=== PATIENT | female | born 1995 | race Caucasian/White ===

== ENCOUNTER 2019-09-18 18:35 | Inpatient (IN) ==
[2019-09-18] MEDS ORDERED: Ziprasidone 10 MG in Water for inj. (sterile) 0.5 ML IM ONE ×2 (19:53→20:48)
[2019-09-18] MEDS ORDERED: Ziprasidone 20 MG/VIAL VIAL IM ONE (19:53)
[2019-09-18] MEDS ORDERED: Water for inj. (sterile) 10 ML ONE (19:54)
[2019-09-18] MEDS ORDERED: *HR* LORazepam 2 MG/ML VIAL ONE (20:01)
[2019-09-18 20:03] LABS: Bilirubin,Urine Small (Negative); Blood,Urine Negative (Negative); Clarity,Urine Cloudy (Clear); Color,Urine Dark Yellow (Yellow); Glucose,Urine (UA) Normal (Normal); Ketones,Urine Negative (Negative); Leukocyte Esterase,Urine Small (Negative); Nitrite,Urine Negative (Negative); Protein,Urine 30 mg/dL (Neg-Trace); Specific Gravity,Urine > 1.030 (1.010-1.025); Urobilinogen,Urine Normal (Normal)
[2019-09-18] MEDS ORDERED: *HR* LORazepam 2 MG/ML VIAL IM ONE ×2 (20:05→20:49)
[2019-09-18 20:07] LABS: Amphetamine Screen,Urine Positive ng/mL (Cutoff=1000); Bacteria,Urine None Seen per hpf (None-Few); Barbiturate Screen,Urine Negative ng/mL (Cutoff=200); Benzodiazepines Screen,Urine Positive ng/mL (Cutoff=200); Cannabinoid Screen,Urine Positive ng/mL (Cutoff = 50); Cocaine Screen,Urine Negative ng/mL (Cutoff= 300); Opiate Screen,Urine Negative ng/mL (Cutoff=300); Phencyclidine Screen,Urine Negative ng/mL (Cutoff=25); Squamous Epithelial Cell,Urine Moderate per lpf (None-Few); WBC,Urine 30-50 per hpf (0-3)
[2019-09-18 20:22] LABS: INR 1.1; Prothrombin Time 12.7 Seconds (9.4-12.1)
[2019-09-18 20:24] LABS: Basophils % 0.3 %; Eosinophils # 0.1 K/mcL (0.0-0.6); Eosinophils % 0.5 %; Hematocrit 43.3 % (35.3-44.9); Hemoglobin 14.6 g/dL (11.5-15.4); Immature Granulocytes % 0.3 % (0-4); Lymphocytes # 1.3 K/mcL (0.6-4.6); Lymphocytes % 12.3 %; Mean Corpuscular HGB Conc 33.7 g/dL (31.6-35.5); Mean Corpuscular Volume 91.9 fL (83.0-100.0); Mean Platelet Volume 8.2 fL (9.4-12.4); Monocytes # 0.7 K/mcL (0.0-1.3); Monocytes % 6.7 %; Neutrophils # 8.7 K/mcL (1.6-8.9); Platelet Count 207 K/mcL (140-400); Red Blood Count 4.71 M/mcL (3.82-4.97); Segmented Neutrophils % 79.9 %; White Blood Count 10.8 K/mcL (4.3-11.1)
[2019-09-18 20:25] LABS: Activated Partial Thrombo Time 33.5 Seconds (26.0-36.0)
[2019-09-18 20:32] LABS: Hyaline Casts,Urine Few per lpf (None-Few)
[2019-09-18 20:33] LABS: Mucus,Urine Moderate per lpf (Few)
[2019-09-18] MEDS ORDERED: Ketamine *HR* 500 MG/10 ML MDV ONE (20:41)
[2019-09-18 21:20] LABS: Acetaminophen < 10 mcg/mL (10-20); Alanine Aminotransferase 31 Units/L (7-52); Albumin 4.5 g/dL (3.5-5.7); Albumin/Globulin Ratio 1.4 (1.1-2.2); Alkaline Phosphatase 61 Units/L (34-104); Aspartate Amino Transferase 28 Units/L (13-39); BUN/Creatinine Ratio 13 (6-26); Bilirubin,Direct 0.2 mg/dL (0.0-0.2); Bilirubin,Indirect 1.1 mg/dL (0.0-1.0); Bilirubin,Total 1.3 mg/dL (0.3-1.0); Blood Urea Nitrogen 12 mg/dL (6-20); Carbon Dioxide 25 mEq/L (23-29); Chloride 109 mEq/L (98-107); Chol/HDL Ratio 4.3 (0-4.9); Cholesterol 200 mg/dL (< 200); Creatine Kinase 52 Units/L (30-223); Ethanol < 10 mg/dL (Less than 10); Globulin 3.3 g/dL (2.4-3.5); Glucose 75 mg/dL (70-105); HDL Cholesterol 46 mg/dL (40-59); LDL Cholesterol,Calculated 98 mg/dL (0-99); Osmolality,Calculated 282 (280-300); Salicylate < 2.5 mg/dL (15.0-30.0); Sodium 137 mEq/L (136-145); Thyroid Stimulating Hormone 1.222 mcIU/mL (0.340-5.600); Total Protein 7.8 g/dL (6.4-8.9); Triglycerides 282 mg/dL (< 150); Valproate < 4 mcg/mL (50-100); eGFR For African Americans > 60 (> 60); eGFR For Non-African Americans > 60 (> 60)
[2019-09-18] MEDS ORDERED: 0.9 % Sodium Chloride 1,000 ML IVC ONE (22:05)
[2019-09-18] MEDS ORDERED: cefTRIAXone 1,000 MG in Water for inj. (sterile) 10 ML IVP STA (22:08)
[2019-09-18 22:15] LABS: Estimated Average Glucose 111 mg/dl
[2019-09-19] MEDS ORDERED: Naloxone 0.4 MG/ML INJ IVP PRN (02:31)
[2019-09-19 03:23] LABS: Hematocrit 41.5 % (35.3-44.9); Hemoglobin 13.9 g/dL (11.5-15.4); Mean Corpuscular HGB Conc 33.5 g/dL (31.6-35.5); Mean Corpuscular Hemoglobin 31.4 pg (28.0-33.3); Mean Corpuscular Volume 93.9 fL (83.0-100.0); Mean Platelet Volume 8.6 fL (9.4-12.4); Platelet Count 185 K/mcL (140-400); Red Blood Count 4.42 M/mcL (3.82-4.97); Red Cell Distribution Width 11.9 % (11.5-14.5)
[2019-09-19 03:42] LABS: Alanine Aminotransferase 25 Units/L (7-52); Albumin 4.2 g/dL (3.5-5.7); Albumin/Globulin Ratio 1.4 (1.1-2.2); Alkaline Phosphatase 54 Units/L (34-104); Aspartate Amino Transferase 22 Units/L (13-39); BUN/Creatinine Ratio 14 (6-26); Bilirubin,Total 1.1 mg/dL (0.3-1.0); Blood Urea Nitrogen 11 mg/dL (6-20); Calcium 9.1 mg/dL (8.6-10.3); Carbon Dioxide 25 mEq/L (23-29); Chloride 108 mEq/L (98-107); Globulin 2.9 g/dL (2.4-3.5); Glucose 87 mg/dL (70-105); Magnesium 2.2 mg/dL (1.6-2.6); Osmolality,Calculated 291 (280-300); Phosphorous 4.3 mg/dL (2.7-4.5); Potassium 4.2 mEq/L (3.5-5.1); Sodium 141 mEq/L (136-145); Total Protein 7.1 g/dL (6.4-8.9); eGFR For African Americans > 60 (> 60); eGFR For Non-African Americans > 60 (> 60)
[2019-09-19] MEDS ORDERED: *HR* Promethazine 25 MG/ML VIAL IVP PRN (03:56)
[2019-09-19 04:08] LABS: Vitamin B12 302 pg/mL (250-1100)
[2019-09-19] MEDS: 0.9 % Sodium Chloride 1,000 ML IVC SCH ×2 (04:14→12:32)
[2019-09-19 04:51] LABS: Hepatitis B Surface Antigen Nonreactive (Nonreactive)
[2019-09-19 05:14] LABS: HIV-1&2 Antibody & p24 Ag Nonreactive (Nonreactive)
[2019-09-19 05:20] LABS: Hepatitis C Virus Antibody Nonreactive (Nonreactive)
[2019-09-19 05:21] LABS: Hepatitis B Core IgM Nonreactive (Nonreactive)
[2019-09-19 05:22] LABS: Hepatitis A Antibody IgM Nonreactive (Nonreactive)
[2019-09-19] MEDS: Haloperidol Lactate 5 MG/ML VIAL IVP PRN ×2 (12:32→22:07)
[2019-09-19] MEDS: RisperiDONE-M 1 MG TAB.RAPDIS PO SCH ×2 (13:40→21:21)
[2019-09-19] MEDS ORDERED: *HR* LORazepam 2 MG/ML VIAL IVP ONE ×2 (13:55→19:06)
[2019-09-19] MEDS ORDERED: *HR* LORazepam 2 MG/ML VIAL ONE (14:16)
[2019-09-19] MEDS: Folic Acid 1 MG TABLET PO SCH (14:37)
[2019-09-19] MEDS: Thiamine (B-1) 100 MG TABLET PO SCH (14:37)
[2019-09-19] MEDS ORDERED: cefTRIAXone 1,000 MG in 0.9 % Sodium Chloride Mini Bag 100 ML IVPB SCH (21:00)
[2019-09-20 02:45] LABS: Hematocrit 36.9 % (35.3-44.9); Hemoglobin 12.5 g/dL (11.5-15.4); Mean Corpuscular HGB Conc 33.9 g/dL (31.6-35.5); Mean Corpuscular Hemoglobin 31.7 pg (28.0-33.3); Mean Corpuscular Volume 93.7 fL (83.0-100.0); Mean Platelet Volume 8.9 fL (9.4-12.4); Platelet Count 170 K/mcL (140-400); Red Blood Count 3.94 M/mcL (3.82-4.97); White Blood Count 6.6 K/mcL (4.3-11.1)
[2019-09-20 03:03] LABS: BUN/Creatinine Ratio 18 (6-26); Blood Urea Nitrogen 14 mg/dL (6-20); Calcium 8.7 mg/dL (8.6-10.3); Carbon Dioxide 21 mEq/L (23-29); Chloride 106 mEq/L (98-107); Glucose 81 mg/dL (70-105); Osmolality,Calculated 288 (280-300); Potassium 3.5 mEq/L (3.5-5.1); Sodium 139 mEq/L (136-145); eGFR For African Americans > 60 (> 60); eGFR For Non-African Americans > 60 (> 60)
[2019-09-20] MEDS: Folic Acid 1 MG TABLET PO SCH (08:02)
[2019-09-20] MEDS: Haloperidol Lactate 5 MG/ML VIAL IVP PRN (08:02)
[2019-09-20] MEDS: RisperiDONE-M 1 MG TAB.RAPDIS PO SCH (08:03)
[2019-09-20] MEDS: Thiamine (B-1) 100 MG TABLET PO SCH (08:03)
[2019-09-20 14:58] VITALS: BP 137/84
[2019-09-20] MEDS ORDERED: *HR* LORazepam 2 MG/ML VIAL IVP ONE (16:03)
== END 2019-09-20 18:40 | disposition other institution (70) | DRG 897 ==
LOC: 3BNU 18:35 → EMEROOARM 18:35 → 3BNU 09-19 00:30
PROVIDERS: ADMIT Family Medicine; ATTEND Nurse Practitioner

== ENCOUNTER 2019-09-20 18:20 | Inpatient (IN) ==
[2019-09-20] MEDS ORDERED: MOM Conc 10 ML UD.LIQ PO PRN (18:33)
[2019-09-20] MEDS ORDERED: *HR* LORazepam 1 MG TABLET PO PRN (18:33)
[2019-09-20] MEDS ORDERED: Acetaminophen 325 MG TABLET PO PRN (18:33)
[2019-09-20] MEDS ORDERED: Mag Hydrox/Al Hydrox/Simeth 30 ML UDC PO PRN (18:33)
[2019-09-20] MEDS ORDERED: haloperidoL 5 MG TABLET PO PRN (18:33)
[2019-09-20] MEDS ORDERED: Haloperidol Lactate 5 MG/ML VIAL IM PRN (18:33)
[2019-09-20] MEDS: *HR* LORazepam 2 MG/ML VIAL IM PRN ×2 (21:00→22:10)
[2019-09-21] MEDS ORDERED: RisperiDONE-M 1 MG TAB.RAPDIS PO PRN (11:15)
[2019-09-21] MEDS ORDERED: Ziprasidone 10 MG in Water for inj. (sterile) 0.5 ML IM PRN (11:15)
[2019-09-21] MEDS: hydrOXYzine pamoate 25 MG CAPSULE PO PRN ×2 (16:12→21:57)
[2019-09-21] MEDS: traZODone 50 MG TABLET PO PRN ×2 (20:13→21:57)
[2019-09-21] MEDS ORDERED: risperiDONE 1 MG TABLET PO SCH (21:00)
[2019-09-22] MEDS: hydrOXYzine pamoate 25 MG CAPSULE PO PRN (07:30)
[2019-09-22] MEDS ORDERED: risperiDONE 1 MG TABLET PO SCH (09:00)
[2019-09-22 09:21] VITALS: BP 134/91
== END 2019-09-22 12:00 | disposition home or self-care (01) | DRG 885 ==
LOC: 1ANU 18:20
PROVIDERS: ADMIT Psychiatry & Neurology Psychiatry; ATTEND Psychiatry & Neurology Psychiatry